=== PATIENT | female | born 1990 | race Two or more races ===

== ENCOUNTER 2023-04-06 04:00 | Day surgery (SDC) | payer OTHER ==
[2023-04-05 11:19] VITALS: BMI 44.9
[2023-04-06] MEDS ORDERED: ACETAMINOPHEN 500 MG TABLET (FP) PO PRN (12:52)
[2023-04-06] MEDS ORDERED: PROMETHAZINE HCL 25 MG/1 ML VIAL IVPB PRN (12:52)
[2023-04-06] MEDS ORDERED: oxyCODONE HCL 5 MG TABLET PO PRN (12:52)
[2023-04-06] MEDS ORDERED: ONDANSETRON 4 MG/2 ML VIAL IVPUSH PRN (12:52)
[2023-04-06] MEDS ORDERED: LACTATED RINGERS SOLUTION 1,000 ML IV SCH (13:00)
[2023-04-06 14:08] VITALS: RESP 20
[2023-04-06 16:44] VITALS: BP 148/73; PULSE 82; TEMP 98.2
== END 2023-04-06 15:15 | disposition home or self-care (01) ==
LOC: JASU-SURG 04:00
PROVIDERS: ATTEND Obstetrics & Gynecology
PROC: 0UB98ZZ Excision of Uterus, Via Natural or Artificial Opening Endoscopic (ICD-10-PCS; principal; 2023-04-06 09:30)
DX: N92.0 Excessive and frequent menstruation with regular cycle (principal); E66.01 Morbid (severe) obesity due to excess calories; N84.0 Polyp of corpus uteri
CPT/HCPCS: 81025; 88305-TC; 94760

== ENCOUNTER 2024-03-28 03:58 | Day surgery (SDC) | payer OTHER ==
[2024-03-17 16:21] VITALS: BMI 49.8
[2024-03-28] MEDS ORDERED: ACETAMINOPHEN INJECTION 100 ML IVPB ONE (07:39)
[2024-03-28] MEDS ORDERED: MIDAZOLAM HCL 2 MG/2 ML SINGLE DOSE VIAL ONE (07:55)
[2024-03-28] MEDS ORDERED: FENTANYL CITRATE/PF 50 MCG/ML VIAL ONE (07:59)
[2024-03-28] MEDS ORDERED: ELECTROLYTE-148 SOLN 1,000 ML IV SCH (08:00)
[2024-03-28] MEDS ORDERED: ONDANSETRON 4 MG/2 ML VIAL IVPUSH PRN (08:00)
[2024-03-28] MEDS ORDERED: IBUPROFEN 800 MG/8 ML IJ IVPB PRN (08:00)
[2024-03-28] MEDS ORDERED: PROPOFOL 20 ML ONE (08:00)
[2024-03-28] MEDS ORDERED: oxyCODONE HCL 5 MG TABLET PO PRN (08:00)
[2024-03-28] MEDS ORDERED: IBUPROFEN 600 MG TABLET (FP) PO PRN (08:00)
[2024-03-28 11:13] VITALS: BP 148/78; PULSE 82; RESP 18; TEMP 98.5
== END 2024-03-28 12:00 | disposition home or self-care (01) ==
LOC: JASU-SURG 03:58
PROVIDERS: ATTEND Obstetrics & Gynecology
PROC: 0UB98ZZ Excision of Uterus, Via Natural or Artificial Opening Endoscopic (ICD-10-PCS; principal; 2024-03-28 07:30)
DX: N84.0 Polyp of corpus uteri (principal); R93.89 Abnormal findings on diagnostic imaging of other specified body structures; N93.9 Abnormal uterine and vaginal bleeding, unspecified
CPT/HCPCS: 81025; 86850; 86900; 86901; 88305-TC; 94760; J0131